=== PATIENT | male | born 1990 | race Caucasian/White ===

== ENCOUNTER 2017-11-15 23:05 | Emergency (ER) | payer OTHER ==
[~2017-11-15] VITALS: Ht 175.3 cm; Wt 121.7 kg
[2017-11-16 00:10] VITALS: BP 158/109
== END 2017-11-16 00:12 | disposition home or self-care (01) ==
LOC: RME 23:05 → EME 23:05 → RME 11-16 00:12
DX: S63.501A Unspecified sprain of right wrist, initial encounter (principal); W01.0XXA Fall on same level from slipping, tripping and stumbling without subsequent striking against object, initial encounter; Y93.67 Activity, basketball; Y92.89 Other specified places as the place of occurrence of the external cause
CPT/HCPCS: 99281; 99283